=== PATIENT | male | born 1935 | race Caucasian/White ===

== ENCOUNTER 2016-06-13 08:28 | Day surgery (SDC) | payer MEDICARE, OTHER ==
[~2016-06-13] VITALS: Ht 182.9 cm; Wt 79.8 kg
[2016-06-13] VITALS (8 sets, daily range): BP systolic 131–168; BP diastolic 72–90; PULSE 75–90; RESP 12–14; O2SAT 95–100
[~2016-06-13 08:28] MED LIST: ACYC200C PO; ASPI-973 PO; EZET10TA PO; LEVO25TA5 PO; LIP40 PO; MAGN400T4 PO; METF500T4 PO; Sodium Chloride LOK Flush 10 mL Syringe IV PRN; TAMS0.4C98 PO; TRAM50TA2 PO; VITAMIN B6 PO; fentaNYL-PF 50 mCg/mL 2 mL Inj IVPUSH PRN; folic acid PO; vitamin B-12 PO; vitamin d PO
[2016-06-13] MEDS ORDERED: Propofol 10,000 mCg/mL 20 mL Inj ONE (08:29)
[2016-06-13] MEDS ORDERED: 0.9% Sodium Chloride 1,000 ML ONE (08:42)
[2016-06-13] MEDS ORDERED: 0.9% Sodium Chloride 1,000 ML IV ONE (09:28)
--- NOTE | 2016-06-13 10:02 | ENDO ---
[address] [address] ENDOSCOPY PROCEDURE PATIENT: ROBE GARCIA : 1935 MR#: [id number] ADMIT: 06/13/2016 JOB ID: [id number] DATE OF SERVICE: 06/13/2016 TYPE OF OPERATION: Colonoscopy. PREOPERATIVE DIAGNOSIS(ES): Rectal bleeding. POSTOPERATIVE DIAGNOSIS(ES): 1. Failed colonoscopy due to the patient's requests to stop due to pain with conscious sedation and systolic blood pressure over 200. 2. Sigmoid diverticulosis. 3. Small internal hemorrhoids. ANESTHESIA: Fentanyl 125 mcg and Versed 7 mg IV administered. COMPLICATIONS: None. BLOOD LOSS: Minimal. DESCRIPTION OF PROCEDURE: After risks and benefits explained to the patient, informed consent was obtained. After anesthesia administered, colonoscope was then inserted from the rectum to the hepatic flexure, and the mucosa carefully examined. Prep of the patient was excellent. After procedure was done, the scope withdrawn and procedure terminated. FINDINGS: Upon inspection of the anus, no masses, hemorrhoids, ulcers, or fissures were seen. Throughout the entire examination, the patient exhibited a remarkable amount of pain and systolic BP over 200. The patient requested to stop the procedure. There was mild sigmoid diverticulosis. Retroflexion showed small internal hemorrhoids. IMPRESSION: 1. Small internal hemorrhoids. 2. Moderate sigmoid diverticulosis. 3. The patient requested to stop the procedure due to pain. RECOMMENDATIONS: Repeat colonoscopy with anesthesia for rectal bleeding.
[2016-06-13] MEDS ORDERED: MetoCLOpramide 5 mg/mL 2 mL Inj IVPUSH PRN (10:05)
[2016-06-13] MEDS ORDERED: Ondansetron 2 mg/mL 2 mL Inj IVPUSH PRN (10:05)
[2016-06-13] MEDS: Lactated Ringer's 1,000 ML IV SCH ×2 (10:09→11:10)
--- NOTE | 2016-06-13 11:09 | ENDO ---
[address] [address] ENDOSCOPY PROCEDURE PATIENT: ROBE GARCIA : 1935 MR#: [id number] ADMIT: 06/13/2016 JOB ID: [id number] DATE OF SERVICE: 06/13/2016 TYPE OF OPERATION: Colonoscopy with biopsy. PREOPERATIVE DIAGNOSIS(ES): Rectal bleeding. POSTOPERATIVE DIAGNOSIS(ES): 1. A 5 mm, flat-based descending colon polyp, removed by cold biopsy forceps. 2. Moderate sigmoid diverticulosis. 3. Small internal hemorrhoids. ANESTHESIA: Monitored anesthesia care. COMPLICATIONS: None. BLOOD LOSS: Minimal. DESCRIPTION OF PROCEDURE: After risks and benefits explained to the patient, informed consent was obtained. After anesthesia administered, colonoscope was then inserted from the rectum to the cecum. Mucosa carefully examined. Prep of the patient was excellent. After procedure was done, the scope withdrawn and procedure terminated. FINDINGS: Upon inspection of the anus, no masses, hemorrhoids, ulcers, or fissures that were seen. Throughout the entire examination, there was a 5 mm, flat-based ascending colon polyp, removed by cold biopsy forceps. There was moderate sigmoid diverticulosis. Retroflexion showed small internal hemorrhoids. IMPRESSION: 1. Small internal hemorrhoids. 2. Moderate sigmoid diverticulosis. 3. A flat-based, 5 mm ascending colon polyp, removed by cold biopsy forceps. RECOMMENDATIONS: Await pathology results. High-fiber diet. If tubular adenoma, then repeat colonoscopy in five years.
--- NOTE | 2016-06-13 19:42 | PCM.ANEP2 ---
Post Anesthesia Evaluation ASA/CMS Post Anesthesia VS in Patient's Normal Range?: Yes Resp Stable; Airway Patent?: Yes CV Function & Hydration Stable: Yes Mental Status Recovered?: Yes Pain control Satisfactory?: Yes N/V Control Satisfactory?: Yes Luís Herrera MD Jun 13, 2016 19:42
--- NOTE | 2016-06-13 19:42 | PCM.HPANE ---
Patient Data Surgeon Admitting Provider: Attending Provider:John Carroll MD Primary Care Physician:John Dillon MD Other Provider: Reason for Visit Rectal Bleeding Ht/WT & BMI Height (Feet): 6 Weight (Kilograms): 79.83 Body Mass Index 23.00 Allergies Coded Allergies: celecoxib (Verified Allergy, Severe, stomach pain / cramping, 06/12/16) Past Anesthesia History Anesthesia History: Denies:: Abnormal Airway, Anesthesia Reactions, Difficult Intubation, Fam Anesthesia Reaction, Fam Malignant Hypertherm, Malignant Hyperthermia Diabetes History Hx Diabetes?: Yes Type of Diabetes: Type II Glycemic Control: Oral Medication Current Bedside Blood Glucose: 95 MRSA MRSA: No Medications Blood Thinner: Aspirin Last Dose Blood Thinner: Jun 11, 2016 Home Meds Incl Beta Jorge Alberto: No Reported Medications Magnesium Oxide 400 Mg [id number] Mg PO 06/12/16 Tamsulosin (Flomax)0.4 Mg Capsule0.4 Mg PO DAILY Ref 0 06/12/16 Tramadol 50 Mg Gzzcgd27 Mg PO HS PRN For Pain Ref 0 06/25/15 Levothyroxine 25 Mcg Juxxsl07 Mcg PO DAILY Ref 0 06/25/15 Acyclovir 200 Mg Twozjrv077 Mg PO 5XD PRN For Pain Ref 0 06/25/15 Ezetimibe (Zetia)10 Mg Qhjfuo92 Mg PO DAILY 30 Days Ref 0 06/25/15 Atorvastatin (Lipitor)40 Mg Hoeqkd11 Mg PO DAILY Ref 0 06/25/15 Metformin 500 Mg Ojlyur258 Mg PO DAILY Ref 0 06/22/15 Aspirin 81 Mg Krsaat13 Mg PO DAILY Ref 0 06/22/15 [Vitamin B6] No Conflict Check50 Mg PO BID 02/29/12 [vitamin B-12] No Conflict Szypb928 Mcg PO BID Ref 0 08/04/08 [folic acid] No Conflict Check2 Mg PO DAILY Ref 0 08/04/08 [vitamin d] No Conflict Check1,000 Mg PO DAILY Ref 0 08/04/08 Discontinued Reported Medications Magnesium Oxide (Magnesium)400 Mg Rmbfmla324 Mg PO DAILY 02/29/12 History History of ENT Problems?: Yes HEENT History: Denies:: Abnormal Airway Cataracts Difficult Intubation Dysphagia Hearing Problem Sinus Problem TMJ Hx of Heart Problems?: Yes Cardiovascular History: Positive for:: Cardiac Surgery (Hx RCA stent 2002) Denies:: AICD Atrial Fibrillation Chest Pain Congestive Heart Failure Heart Murmur Hypertension Irregular Heartbeat Pacemaker Rheumatic Fever Valvular Heart Disease Other Cardiac History: STENT PLACEMENT JULY 2002 Hx of Respiratory Problem?: No Respiratory History: Denies:: Asthma COPD Emphysema Oxygen Administration Pneumonia Tuberculosis Use of C-PAP Machine Hx Neurologic Problems?: Yes Neurological History: Positive for:: Dizziness (past hx of ) Denies:: CVA Headaches Multiple Sclerosis Parkinson's Disease Seizures Hx of GI Problems?: Yes Gastrointestinal History: Denies:: Cirrhosis Diverticulitis Gall Bladder Disease Gastroesphageal Reflux Gastrointestinal Bleeding Heartburn Hiatal Hernia Liver Disease Rectal Bleeding Hx of Problems?: No Genitourinary History: Denies:: Urinary Tract Infection Male Hx: Positive for:: Testicular Surgery (S/P RT ORCHIECTOMY R/T SURGICAL COMPLICATION) Denies:: Prostate Problems (turp) Scrotal Mass Skin History: Positive for:: History Skin Disorders? (S/P EXC FACIAL SKIN CA) Denies:: Pressure Ulcers Hx Musculoskeletal Problems?: Yes Musculoskeletal History: Positive for:: Back Injury (L3 L4 L5 pain from child hale injury) Denies:: Degenerative Joint Joint Replacement Musculoskeletal Trauma Hx of Psycho/Social Problems?: Yes Psycho Social History: Denies:: Anxiety Hx Depression Hx Surgeries?: Yes (HERNIA) Hx Any Other Health Problems?: No Other History: Positive for:: Cancer (FACIAL SKIN CA) Thyroid Disease Denies:: Endocrine Disease Hospitalization History Blood Transfusions: Denies:: Blood Transfusions Hx Diabetes: YesBedside Blood Glucose: 95 Hx Alcohol Use: NoHx Substance Use: No Smoking Status: Never Smoker Have You Smoked inLast 12 mo: No Stop/Bang Treated for Sleep Apnea?: No S-Snoring: Do You Snore Loudly: No T-Tired: feel tired, fatigued: No O-Obsered: Observed not breath: No P-Blood Pressure: treated: No B- Body Mass Index > 35 kg/m2: No A- Age over 50: Yes N- Neck Large Circumference: No G- Gender Male: Yes CELESTE Total Score: 2 Risk Assessment Category Category 1A: Patient has history of documented sleep apnea, and HAS NOT received any narcotic, sedative or anesthesia administration during this stay. Category 1B: Patient has history of documented sleep apnea, and HAS received any narcotic , sedative or anesthesia administration during this stay Category 2: Patient has SUSPECTED Obstructive Sleep Apnea, and HAS received any narcotic , sedative or anesthesia administration during this stay. Category 3: Patient has SUSPECTED Obstructive Sleep Apnea and HAS NOT received narcotic, sedative or anesthesia administration during this stay. Category 4: Outpatient in Procedural Areas with known sleep apnea or who screen positive for High Risk via the STOP/BANG questionnaire. Exam Exam Vital Signs Vital Signs Date Time Temp Pulse Resp B/P Pulse Ox O2 Delivery O2 Flow Rate FiO2 06/13/16 09:51 88 12 160/90 96 Room Air 06/13/16 09:42 83 12 131/73 95 Room Air 06/13/16 09:34 80 12 165/83 100 Nasal Cannula 3.5 06/13/16 08:56 90 14 168/88 96 Room Air General Appearance: Alert, Oriented X3, Cooperative, No Acute Distress HEENT/AIRWAY: MP 2 Lungs: Clear to Auscultation, Normal Air Movement Heart: Exam Unremarkable, Regular Rate/Rhythm, No Murmurs/Rubs/Gallops Meds/Labs/Diagnostics Admission Meds Current Medications Sodium Chloride (Normal Saline) 1,000 ml @ ud STK-MED ONCE IV Last administered on 06/13/16t 09:28; Start 06/13/16 at 09:28; Stop 06/13/16 at 09:30 ; Status DC Bedside Blood Glucose: 95 Plan Impression Patient chart reviewed, patient interviewed and anesthestic plan with risks, benefits, and alternatives discussed, and informed consent obtained. NPO Status: 06/24/15 ASA Physical Status: ASA2 Mod Systemic Disease Anesthetic Plan: MAC Bene/Risks/Altern/Consents: Yes HP Complete Prior to Induction: Yes Luís Herrera MD Jun 13, 2016 10:03
--- NOTE | 2016-06-13 19:42 | PCM.ANEP1 ---
Post Anesthesia Phase 1 PACU Phase 1 Assessment Anesthetic Administered: MAC Level of Alertness: Awake, talking NIETO's with Equal Strength: Yes Pain: No Nausea or Vomiting: No Oxygen Delivery: Room Air Lungs: Clear to Auscultation, Normal Air Movement Dermatome Level: Full Sensation Luís Herrera MD Jun 13, 2016 19:42
--- NOTE | 2016-06-16 11:32 | PATH ---
SURGICAL PATHOLOGY Attending Physician:John Carroll MD CASE STATUS: Signed Out PATIENT NAME: ROBE GARCIA PID: [id number] : 1935 DATE COLLECTED:06/13/2016 17:25 SPECIMEN: Colon, Biopsy CLINICAL HISTORY: ASCENDING COLON POLYP FINAL DIAGNOSIS: 1.ASCENDING COLON POLYP: TUBULAR ADENOMA INVOLVING ALL BIOPSY FRAGMENTS. ICD10 CODE D12.2 GROSS DESCRIPTION: The specimen is received in one formalin filled container labeled with the patient's name, sublabeled "ascending colon polyp" and consists of 4 portions of tissue which aggregate to 0.3-0.3 x 0.3 CM. The specimen is entirely submitted in one cassette. 06/13/2016 DAC MICRO DESCRIPTION: See diagnosis. ICD-9 CODES: CPT CODES: 1: 98460 Electronically Signed Out Kolby Fontana MD [facility] [address], [place] [address] Technical component performed at [facility], [facility] [address], [place], [address]
== END 2016-06-13 23:59 | disposition home or self-care (01) ==
LOC: END 08:28
PROVIDERS: ATTEND Internal Medicine Gastroenterology
DX: D12.2 Benign neoplasm of ascending colon (principal); Z53.09 Procedure and treatment not carried out because of other contraindication; R10.9 Unspecified abdominal pain; K57.30 Diverticulosis of large intestine without perforation or abscess without bleeding; K64.8 Other hemorrhoids; I10 Essential (primary) hypertension; E11.9 Type 2 diabetes mellitus without complications; I25.10 Atherosclerotic heart disease of native coronary artery without angina pectoris; Z79.82 Long term (current) use of aspirin; Z79.84 Long term (current) use of oral hypoglycemic drugs
CPT/HCPCS: 45378; 45380; 88305; G0500; J2250; J3010; J7030; J7120